=== PATIENT | female | born 1955 | race African-American/Black ===

== ENCOUNTER 2017-09-02 15:23 | Observation (INO) | payer MEDICARE ==
[~2017-09-02] VITALS: Ht 152.4 cm; Wt 72.0 kg
[~2017-09-02 15:23] MED LIST: ULTRAM50 M1 OR
--- NOTE | 2017-09-02 15:25 | NUR ---
TO ROOM 8 VIA W/C. ALERT. COOPERATIVE. C/O CHEST PAIN SINCE LAST NIGHT. HAD NAUSEA, LIGHTHEADEDNESS,AND SWEATING LAST NIGHT BUT NOT THIS AM. REPORTS TOOK ASA 81MG X 3 AND NTG X 2 PRIOR TO ARRIVAL
[2017-09-02 16:24] LABS: HEMATOCRIT 41.8 % (37.0-47.0); HEMOGLOBIN 14.3 g/dl (12.0-16.0); MEAN CELL VOLUME 92.3 fL CALC (80.0-100.0); MEAN CORPUSCULAR HGB 31.6 pG CALC (26.0-32.0); MEAN CORPUSCULAR HGB CONC 34.2 g/L CALC (32.0-36.0); NEUT# 0.99 thou/uL (2.00-7.15); RED BLOOD COUNT 4.53 mill/uL (4.20-5.60)
--- NOTE | 2017-09-02 16:30 | NUR ---
MD AWARE OF ELEVATED BP. AWAITING NEW ORDERS.
[2017-09-02 16:39] LABS: PROTHROMBIN TIME 11.7 SECONDS (9.0-12.5)
[2017-09-02 16:42] LABS: ALBUMIN 4.6 g/dL (3.2-5.0); ALKALINE PHOSPHATASE 130 u/l (38-126); ANION GAP 16 (6-22 (CALC)); BILIRUBIN, TOTAL 0.8 mg/dL (0.0-1.4); BUN 11 mg/dL (7-17); BUN/CREATININE RATIO 10 (12-20 (CALC)); CALCIUM 10.2 mg/dL (8.4-10.2); CARBON DIOXIDE 24 mmol/l (22-30); CHLORIDE 105 mmol/l (95-108); GFR 57 ML/MIN (>=60 (CALC)); GFR FOR AFR.AMER. > 60 ML/MIN (>=60 (CALC)); GLUCOSE 93 mg/dL (65-105); POTASSIUM 3.5 mmol/l (3.5-5.1); SGOT/AST 28 u/l (14-36); SGPT/ALT 24 u/l (9-52); SODIUM 141 mmol/l (137-146); TOTAL PROTEIN 8.9 g/dL (6.3-8.2)
[2017-09-02 16:52] LABS: MYOGLOBIN 43 ng/mL (0 - 62)
--- NOTE | 2017-09-02 17:02 | NUR ---
PT MEDICATED WITH 2 MG OF MORHINE SLOW IVP AND NITRO PATCH PLACED ON LEFT ANTERIOR CHEST. PT RESTING COMFORTABLY IN STRECHER. CALL FARRAR WITHIN REACH.
[2017-09-02] MEDS ORDERED: VERAPAMIL120 M1 PO (17:07)
[2017-09-02] MEDS ORDERED: CLOPIDOGREL75 MG PO (17:08)
[2017-09-02] MEDS ORDERED: PERCOCET 5/325M1 TAB PO (17:12)
[2017-09-02] MEDS ORDERED: GABAPENTIN100 MG PO (17:13)
[2017-09-02] MEDS ORDERED: VITAMIN D22000 UNIT PO (17:14)
[2017-09-02] MEDS ORDERED: FAMOTIDINE20 M1 PO (17:15)
[2017-09-02] MEDS ORDERED: PROAIR HFA IN (17:16)
[2017-09-02] MEDS ORDERED: CLONIDINE0.1 MG PO (17:16)
[2017-09-02] MEDS ORDERED: LOSARTAN POT50 MG PO (17:17)
[2017-09-02] MEDS ORDERED: PRAVASTATIN20 MG PO (17:17)
[2017-09-02] MEDS ORDERED: CARVEDILOL6.25 MG PO (17:19)
--- NOTE | 2017-09-02 17:19 | NUR ---
MD AT BEDSIDE TO DISCUSS RESUTLS AND PLAN FOR ADMIT.
--- NOTE | 2017-09-02 17:20 | NUR ---
SBAR PRINTED TO FLOOR
--- NOTE | 2017-09-02 18:00 | NUR ---
PT REPORTS PAIN IS NOW 2/10 AND DENIES ANY SOB AT THIS TIME. PT AWARE OF PENDING ADMIT AND WAIT TIME. ASSISTED PT TO BATHROOM. PT AMBULATED WITH A STEADY GAIT AND DENIES ANY DIZZINESS AT THIS TIME.
--- NOTE | 2017-09-02 18:20 | NUR ---
UNABLE TO CALL REPORT UNTIL NURSE PRACTITIONER ARRIVES.
--- NOTE | 2017-09-02 18:41 | NUR ---
PT IS CURRENTLY PAIN FREE AT THIS TIME. BP 119/74, HR 73. PT RESTING COMFORTABLY IN STRETCHER AND IS AWARE OF DELAY IN ADMISSION. WILL CONTINUE TO MONITOR.
--- NOTE | 2017-09-02 18:48 | NUR ---
REPORT GIVEN TO CAROLINE DANG FOR TRANSPORT.
--- NOTE | 2017-09-02 18:54 | NUR ---
REPORT CALLED TO CAROLINE DÍAZ. PT TO BE TRANSPORTED TO [place] IN 15 MINS.
--- NOTE | 2017-09-02 19:20 | NUR ---
PT'S B/P LOW 87/61- REMOVED NTG PASTE. WILL MONITOR PRIOR TO TAKING UPSTAIRS.
--- NOTE | 2017-09-02 19:48 | NUR ---
PT'S B/P 122/83. WILL TRANSPORT UPSTAIRS.
--- NOTE | 2017-09-02 19:48 | NUR ---
Admission Note Report Given to: BRE BY CAROLINE LOUIS. Transported by: Wheelchair X Stretcher Transported with: X Nurse Transporter X Patent IV O2 X Publicity Consultant
[2017-09-02 19:50] VITALS: BP 102/71
--- NOTE | 2017-09-02 19:53 | NUR ---
PATIENT ARRIVED TO THE FLOOR IN STABLE CONDITION VIA STRETCHER AND ACCOMPANIED BY ED NURSE. PATIENT WEIGHED AND SETTLED TO BED. ORIENTED PATIENT TO ROOM CALL SYSTEM. BED IN LOW POSITION, CALL LIGHT IN REACH.
[2017-09-02 23:17] VITALS: BP 113/71
--- NOTE | 2017-09-03 | NUR ---
PATIENT RESTING QUIETLY IN BED AT THIS TIME. C/O OF GENERALIZED PAIN. MD NOTIFIED.
[2017-09-03 03:40] VITALS: BP 115/70
--- NOTE | 2017-09-03 04:00 | NUR ---
NO APPARENT ACUTE CHANGES NOTED IN PT'S CONDITION AT THIS TIME.
[2017-09-03 05:18] LABS: HEMATOCRIT 37.5 % (37.0-47.0); HEMOGLOBIN 12.8 g/dl (12.0-16.0); IMMATURE GRANULOCYTES 0.3 % (0.0-1.0); MEAN CORPUSCULAR HGB 32.1 pG CALC (26.0-32.0); MEAN CORPUSCULAR HGB CONC 34.1 g/L CALC (32.0-36.0); NEUT# 1.51 thou/uL (2.00-7.15); RED BLOOD COUNT 3.99 mill/uL (4.20-5.60)
[2017-09-03 05:31] LABS: CALCIUM 9.8 mg/dL (8.4-10.2); CREATININE 1.2 mg/dL (0.5-1.0); POTASSIUM 3.9 mmol/l (3.5-5.1)
--- NOTE | 2017-09-03 07:00 | NUR ---
RECEIVED BEDSIDE REPORT FROM BRE VELAZQUEZ. SITTING IN BEDSIDE CHAIR TALKING ON TELEPHONE. RESPS EVEN AND UNLABORED ON ROOM AIR, TELE MONITOR IN PLACE. DENIES PAIN OR DISCOMFORT. PLAN OF CARE DISCUSSED. SAFETY PRECAUTIONS REINFORCED. BED IN LOWEST POSITION WITH WHEELS LOCKED. CALL LIGHT WITHIN REACH. ENCOURAGED PT TO CALL FOR ANY NEEDS.
[2017-09-03 07:11] VITALS: BP 138/85
[2017-09-03 09:03] LABS: CHOLESTEROL HDL RATIO 3.6 (<4.4 (CALC)); MAGNESIUM 1.8 mg/dL (1.6-2.3)
[2017-09-03 10:45] VITALS: BP 114/72
--- NOTE | 2017-09-03 11:30 | NUR ---
DR MI IN TO SEE PT, NEW ORDERS RECEIVED.
[2017-09-03 12:38] LABS: URINE BILIRUBIN - DIPSTICK NEGATIVE (NEGATIVE); URINE BLOOD DIPSTICK NEGATIVE (NEGATIVE); URINE COLOR YELLOW; URINE GLUCOSE - DIPSTICK NEGATIVE (NEGATIVE); URINE KETONE NEGATIVE (NEGATIVE); URINE NITRITE - DIPSTICK NEGATIVE (Negative); URINE PH 5.5 (4.5-8.0); URINE PROTEIN - DIPSTICK 100 mg/dL (NEG-TRACE); URINE SPECIFIC GRAVITY 1.015
--- NOTE | 2017-09-03 12:38 | NUR ---
Discharge instructions given. Patient verbalizes understanding of same. Discharged in stable condition via Ambulatory to Home with family. All belongings sent with pt.
[2017-09-03 12:47] LABS: URINE LEUK ESTERASE TRACE (NEGATIVE)
[2017-09-03 12:48] LABS: URINE CLARITY SL CLOUDY; URINE EPITHELIAL CELLS MODERATE EPI/hpf (0-FEW); URINE WBC 0-2 WBC/hpf (0-5)
== END 2017-09-03 12:37 | disposition home or self-care (01) ==
LOC: ED 15:23 → ED-I 17:02 → ED 17:19 → MS2 17:20
PROVIDERS: Emergency Medicine; Nurse Practitioner Family; ADMIT Internal Medicine; ATTEND Internal Medicine
DX: R07.9 Chest pain, unspecified (principal); I10 Essential (primary) hypertension; K21.9 Gastro-esophageal reflux disease without esophagitis; J44.9 Chronic obstructive pulmonary disease, unspecified; G89.4 Chronic pain syndrome; G47.33 Obstructive sleep apnea (adult) (pediatric); I25.10 Atherosclerotic heart disease of native coronary artery without angina pectoris; I16.0 Hypertensive urgency; E78.5 Hyperlipidemia, unspecified; R22.1 Localized swelling, mass and lump, neck; Z87.891 Personal history of nicotine dependence; Z79.02 Long term (current) use of antithrombotics/antiplatelets; Z95.5 Presence of coronary angioplasty implant and graft; R06.02 Shortness of breath

== ENCOUNTER 2018-04-12 15:28 | Emergency (ER) | payer MEDICARE, MEDICAID ==
[~2018-04-12] VITALS: Ht 152.4 cm; Wt 66.8 kg
[~2018-04-12 15:28] MED LIST changes: +CARVEDILOL6.25 MG PO; +CLONIDINE0.1 MG PO; +CLOPIDOGREL75 MG PO; +FAMOTIDINE20 M1 PO; +GABAPENTIN100 MG PO; +LOSARTAN POT50 MG PO; +PERCOCET 5/325M1 TAB PO; +PRAVASTATIN20 MG PO; +PROAIR HFA IN; +VERAPAMIL120 M1 PO; +VITAMIN D22000 UNIT PO
[2018-04-12 15:42] LABS: HEMATOCRIT 37.8 % (37.0-47.0); HEMOGLOBIN 12.6 g/dl (12.0-16.0); IMMATURE GRANULOCYTES 0.2 % (0.0-5.0); MEAN CELL VOLUME 95.2 fL CALC (80.0-100.0); MEAN CORPUSCULAR HGB 31.7 pG CALC (26.0-32.0); MEAN CORPUSCULAR HGB CONC 33.3 g/L CALC (32.0-36.0); NEUT# 1.98 thou/uL (2.00-7.15); RED BLOOD COUNT 3.97 mill/uL (4.20-5.60)
[2018-04-12 16:08] VITALS: BP 135/77
[2018-04-12 16:25] LABS: PROTHROMBIN TIME 10.8 SECONDS (9.0-12.5)
[2018-04-12 16:28] LABS: ALBUMIN 4.2 g/dL (3.2-5.0); ALKALINE PHOSPHATASE 106 u/l (38-126); BILIRUBIN, TOTAL 0.4 mg/dL (0.0-1.4); BUN 28 mg/dL (8-23); BUN/CREATININE RATIO 21 (12-20 (CALC)); CARBON DIOXIDE 18 mmol/l (22-30); CHLORIDE 108 mmol/l (95-108); CREATININE 1.3 mg/dL (0.5-1.0); GFR 42 ML/MIN (>=60 (CALC)); GFR FOR AFR.AMER. 50 ML/MIN (>=60 (CALC)); SGOT/AST 26 u/l (9-36); SGPT/ALT 31 u/l (11-66); SODIUM 141 mmol/l (137-146); TOTAL PROTEIN 8.2 g/dL (6.3-8.2)
[2018-04-12 16:36] LABS: MYOGLOBIN 51 ng/mL (0 - 62)
[2018-04-12 16:50] LABS: DIGOXIN < 0.4 ng/mL (0.8-2.0)
[2018-04-12 16:59] LABS: ANION GAP 20 (6-22 (CALC))
== END 2018-04-12 16:05 | disposition short-term general hospital (02) ==
LOC: ED 15:28
PROVIDERS: Emergency Medicine
DX: I24.9 Acute ischemic heart disease, unspecified (principal); I44.7 Left bundle-branch block, unspecified; J44.9 Chronic obstructive pulmonary disease, unspecified; I10 Essential (primary) hypertension; I25.2 Old myocardial infarction; K21.9 Gastro-esophageal reflux disease without esophagitis; Z95.5 Presence of coronary angioplasty implant and graft

== ENCOUNTER 2018-09-05 10:56 | Emergency (ER) | payer MEDICARE ==
[~2018-09-05] VITALS: Ht 152.4 cm; Wt 79.8 kg
[2018-09-05 11:32] LABS: HEMATOCRIT 36.5 % (37.0-47.0); HEMOGLOBIN 11.8 g/dl (12.0-16.0); IMMATURE GRANULOCYTES 0.3 % (0.0-5.0); MEAN CELL VOLUME 97.9 fL CALC (80.0-100.0); MEAN CORPUSCULAR HGB 31.6 pG CALC (26.0-32.0); MEAN CORPUSCULAR HGB CONC 32.3 g/L CALC (32.0-36.0); NEUT# 1.19 thou/uL (2.00-7.15); RED BLOOD COUNT 3.73 mill/uL (4.20-5.60); RED CELL DISTRI WIDTH 13.9 % (11.5-15.5)
[2018-09-05 11:51] LABS: BUN 22 mg/dL (8-23); BUN/CREATININE RATIO 19 (12-20 (CALC)); CHLORIDE 107 mmol/l (95-108); CREATININE 1.1 mg/dL (0.5-1.0); GFR 50 ML/MIN (>=60 (CALC)); GFR FOR AFR.AMER. > 60 ML/MIN (>=60 (CALC)); POTASSIUM 5.1 mmol/l (3.5-5.1); SODIUM 139 mmol/l (137-146)
[2018-09-05 11:52] LABS: ANION GAP 11 (6-22 (CALC)); CARBON DIOXIDE 26 mmol/l (22-30)
[2018-09-05 13:36] VITALS: BP 128/76
== END 2018-09-05 13:45 | disposition short-term general hospital (02) ==
LOC: ED 10:56
PROVIDERS: Family Medicine
DX: I25.110 Atherosclerotic heart disease of native coronary artery with unstable angina pectoris (principal); I10 Essential (primary) hypertension; I25.2 Old myocardial infarction; R07.89 Other chest pain; Z95.5 Presence of coronary angioplasty implant and graft; R94.31 Abnormal electrocardiogram [ECG] [EKG]

== ENCOUNTER 2020-04-01 09:15 | Emergency (ER) | payer MEDICARE ==
[~2020-04-01] VITALS: Ht 152.4 cm; Wt 80.5 kg
[2020-04-01 09:46] LABS: HEMATOCRIT 38.1 % (37.0-47.0); HEMOGLOBIN 12.5 g/dl (12.0-16.0); IMMATURE GRANULOCYTES 0.2 % (0.0-5.0); MEAN CELL VOLUME 94.3 fL CALC (80.0-100.0); MEAN CORPUSCULAR HGB 30.9 pG CALC (26.0-32.0); MEAN CORPUSCULAR HGB CONC 32.8 g/dL CAL (32.0-36.0); NEUT# 3.46 thou/uL (2.00-7.15); RED BLOOD COUNT 4.04 mill/uL (4.20-5.60); RED CELL DISTRI WIDTH 13.9 % (11.5-15.5)
[2020-04-01 09:58] LABS: ALBUMIN 4.1 g/dL (3.2-5.0); ALKALINE PHOSPHATASE 128 u/l (38-126); BUN 12 mg/dL (8-23); BUN/CREATININE RATIO 15 (12-20 (CALC)); CHLORIDE 107 mmol/l (95-108); CREATININE 0.8 mg/dL (0.5-1.0); GFR > 60 ML/MIN (>=60 (CALC)); GFR FOR AFR.AMER. > 60 ML/MIN (>=60 (CALC)); LIPASE 58 u/l (23-300); SGOT/AST 25 u/l (9-36); SODIUM 136 mmol/l (137-146); TOTAL PROTEIN 8.2 g/dL (6.3-8.2)
[2020-04-01 10:00] LABS: ANION GAP 13 (6-22 (CALC)); BILIRUBIN, TOTAL 0.8 mg/dL (0.0-1.4); CARBON DIOXIDE 20 mmol/l (22-30); POTASSIUM 3.9 mmol/l (3.5-5.1)
[2020-04-01 10:44] LABS: URINE BILIRUBIN - DIPSTICK NEGATIVE (NEGATIVE); URINE BLOOD DIPSTICK NEGATIVE (NEGATIVE); URINE COLOR YELLOW; URINE GLUCOSE - DIPSTICK NEGATIVE (NEGATIVE); URINE KETONE NEGATIVE (NEGATIVE); URINE LEUK ESTERASE NEGATIVE (NEGATIVE); URINE PROTEIN - DIPSTICK 100 mg/dL (NEG-TRACE); URINE UROBILINOGEN - DIPSTICK 0.2 E.U./dL (0.2)
[2020-04-01 10:46] LABS: URINE NITRITE - DIPSTICK POSITIVE (Negative)
[2020-04-01 10:47] LABS: URINE BACTERIA MANY hpf; URINE EPITHELIAL CELLS FEW EPI/hpf (0-FEW)
[2020-04-01] MEDS ORDERED: CEPHALEXIN500 M1 PO (10:51)
[2020-04-01 11:02] VITALS: BP 191/98
[2020-04-01] MEDS ORDERED: ONDANSETRON4 MG PO ×2 (11:07)
--- NOTE | 2020-04-03 10:21 | NUR ---
URINE CX SHOWS ESBL E COLI. SPOKE WITH ER DR LE, PT PRESENTED WITH NAUSEA/VOMITING, NO FLANK PAIN, NO UTI COMPLAINTS. LIKELY CYSTITIS VS PYELONEPHRITIS. CULTURE SHOWS SENSITIVITY TO NITROFURANTOIN. SPOKE WITH PT, REPORTED FEELING MUCH BETTER, NO NAUSEA NO VOMITING NO FEVER, JUST LACK OF APPETITE. INFORMED PT OF NEW RX, CALLED IN MACROBID 100MG PO BID X5 DAYS TO [facility].
== END 2020-04-01 11:15 | disposition home or self-care (01) ==
LOC: ED 09:15
PROVIDERS: Family Medicine
DX: R11.2 Nausea with vomiting, unspecified (principal); N39.0 Urinary tract infection, site not specified; I10 Essential (primary) hypertension; K21.9 Gastro-esophageal reflux disease without esophagitis; J44.9 Chronic obstructive pulmonary disease, unspecified; I25.2 Old myocardial infarction; B96.20 Unspecified Escherichia coli [E. coli] as the cause of diseases classified elsewhere; Z16.12 Extended spectrum beta lactamase (ESBL) resistance

== ENCOUNTER 2020-05-20 07:34 | Emergency (ER) | payer MEDICARE ==
[~2020-05-20] VITALS: Ht 165.1 cm; Wt 90.0 kg
[~2020-05-20 07:34] MED LIST changes: +CEPHALEXIN500 M1 PO; +ONDANSETRON4 MG PO
[2020-05-20] MEDS ORDERED: ASPIRIN81 MG PO (07:57)
[2020-05-20] MEDS ORDERED: [UNRECOGNIZED DRUG - OTHER] PO (07:59)
[2020-05-20] MEDS ORDERED: ERGOCAL2500 UNIT PO (07:59)
[2020-05-20] MEDS ORDERED: EZETIMIBE10 MG PO (08:00)
[2020-05-20] MEDS ORDERED: LABETALOL200 MG PO (08:00)
[2020-05-20] MEDS ORDERED: NIFEDIPINE60 MG PO (08:00)
[2020-05-20] MEDS ORDERED: NEURONTIN300 MG PO (08:01)
[2020-05-20] MEDS ORDERED: TAMSULOSIN0.4 MG PO (08:02)
[2020-05-20] MEDS ORDERED: FAMOTIDINE20 M1 PO (08:03)
[2020-05-20] MEDS ORDERED: XANAX0.25 MG PO (08:05)
[2020-05-20] MEDS ORDERED: LIPITOR80 M1 PO (08:05)
[2020-05-20] MEDS ORDERED: FOSAMAX PLUS PO (08:06)
[2020-05-20 08:27] LABS: HEMATOCRIT 38.3 % (37.0-47.0); HEMOGLOBIN 12.1 g/dl (12.0-16.0); MEAN CORPUSCULAR HGB 30.3 pG CALC (26.0-32.0); MEAN CORPUSCULAR HGB CONC 31.6 g/dL CAL (32.0-36.0); NEUT# 1.77 thou/uL (2.00-7.15); RED BLOOD COUNT 3.99 mill/uL (4.20-5.60); RED CELL DISTRI WIDTH 13.6 % (11.5-15.5)
[2020-05-20 08:40] LABS: ALBUMIN 4.1 g/dL (3.2-5.0); ALKALINE PHOSPHATASE 116 u/l (38-126); ANION GAP 12 (6-22 (CALC)); BILIRUBIN, TOTAL 0.9 mg/dL (0.0-1.4); BUN 19 mg/dL (8-23); BUN/CREATININE RATIO 24 (12-20 (CALC)); CARBON DIOXIDE 21 mmol/l (22-30); CHLORIDE 109 mmol/l (95-108); CREATININE 0.8 mg/dL (0.5-1.0); GFR > 60 ML/MIN (>=60 (CALC)); GFR FOR AFR.AMER. > 60 ML/MIN (>=60 (CALC)); SGOT/AST 23 u/l (9-36); SODIUM 138 mmol/l (137-146)
[2020-05-20 10:24] LABS: URINE BILIRUBIN - DIPSTICK NEGATIVE (NEGATIVE); URINE BLOOD DIPSTICK NEGATIVE (NEGATIVE); URINE COLOR YELLOW; URINE GLUCOSE - DIPSTICK NEGATIVE (NEGATIVE); URINE KETONE NEGATIVE (NEGATIVE); URINE LEUK ESTERASE NEGATIVE (NEGATIVE); URINE NITRITE - DIPSTICK NEGATIVE (Negative); URINE PROTEIN - DIPSTICK 100 mg/dL (NEG-TRACE); URINE SPECIFIC GRAVITY 1.025
[2020-05-20 10:27] LABS: URINE EPITHELIAL CELLS MODERATE EPI/hpf (0-FEW)
[2020-05-20] MEDS ORDERED: MIRALAX3350 N1 PO (10:28)
[2020-05-20 11:20] VITALS: BP 166/89
== END 2020-05-20 11:30 | disposition home or self-care (01) ==
LOC: ED 07:34
PROVIDERS: Emergency Medicine
DX: I10 Essential (primary) hypertension (principal); K59.00 Constipation, unspecified; J44.9 Chronic obstructive pulmonary disease, unspecified; I25.2 Old myocardial infarction; Z95.5 Presence of coronary angioplasty implant and graft

== ENCOUNTER 2020-05-24 23:15 | Emergency (ER) | payer MEDICARE ==
[~2020-05-24] VITALS: Ht 165.1 cm; Wt 84.1 kg
[~2020-05-24 23:15] MED LIST changes: +ASPIRIN81 MG PO; +ERGOCAL2500 UNIT PO; +EZETIMIBE10 MG PO; +FOSAMAX PLUS PO; +LABETALOL200 MG PO; +LIPITOR80 M1 PO; +MIRALAX3350 N1 PO; +NEURONTIN300 MG PO; +NIFEDIPINE60 MG PO; +TAMSULOSIN0.4 MG PO; +XANAX0.25 MG PO; +[UNRECOGNIZED DRUG - OTHER] PO
[2020-05-24 23:59] LABS: HEMATOCRIT 37.7 % (37.0-47.0); HEMOGLOBIN 12.2 g/dl (12.0-16.0); IMMATURE GRANULOCYTES 0.3 % (0.0-5.0); MEAN CORPUSCULAR HGB 30.4 pG CALC (26.0-32.0); MEAN CORPUSCULAR HGB CONC 32.4 g/dL CAL (32.0-36.0); NEUT# 4.26 thou/uL (2.00-7.15); RED BLOOD COUNT 4.01 mill/uL (4.20-5.60); RED CELL DISTRI WIDTH 13.3 % (11.5-15.5)
[2020-05-25 01:11] LABS: ALBUMIN 4.6 g/dL (3.2-5.0); ALKALINE PHOSPHATASE 109 u/l (38-126); BUN 13 mg/dL (8-23); BUN/CREATININE RATIO 16 (12-20 (CALC)); CARBON DIOXIDE 21 mmol/l (22-30); CHLORIDE 105 mmol/l (95-108); CREATININE 0.8 mg/dL (0.5-1.0); GFR > 60 ML/MIN (>=60 (CALC)); GFR FOR AFR.AMER. > 60 ML/MIN (>=60 (CALC)); SODIUM 134 mmol/l (137-146)
[2020-05-25 01:14] LABS: ANION GAP 13 (6-22 (CALC)); BILIRUBIN, TOTAL 1.8 mg/dL (0.0-1.4); POTASSIUM 5.1 mmol/l (3.5-5.1); SGOT/AST 50 u/l (9-36)
[2020-05-25 01:23] LABS: MYOGLOBIN 46 ng/mL (0 - 62)
[2020-05-25 02:00] VITALS: BP 161/69
[2020-05-25 02:29] LABS: URINE BILIRUBIN - DIPSTICK NEGATIVE (NEGATIVE); URINE BLOOD DIPSTICK NEGATIVE (NEGATIVE); URINE COLOR YELLOW; URINE GLUCOSE - DIPSTICK NEGATIVE (NEGATIVE); URINE KETONE NEGATIVE (NEGATIVE); URINE LEUK ESTERASE NEGATIVE (NEGATIVE); URINE NITRITE - DIPSTICK NEGATIVE (Negative); URINE PROTEIN - DIPSTICK 100 mg/dL (NEG-TRACE); URINE UROBILINOGEN - DIPSTICK 0.2 E.U./dL (0.2)
[2020-05-25 03:02] LABS: URINE BACTERIA FEW hpf; URINE EPITHELIAL CELLS FEW EPI/hpf (0-FEW); URINE WBC 0-2 WBC/hpf (0-5)
== END 2020-05-25 02:15 | disposition home or self-care (01) ==
LOC: ED 23:15
PROVIDERS: Emergency Medicine
DX: R09.89 Other specified symptoms and signs involving the circulatory and respiratory systems (principal); K29.70 Gastritis, unspecified, without bleeding; I10 Essential (primary) hypertension; K21.9 Gastro-esophageal reflux disease without esophagitis; J44.9 Chronic obstructive pulmonary disease, unspecified; I25.2 Old myocardial infarction
CPT/HCPCS: Q9967; S0164

== ENCOUNTER 2020-07-09 12:05 | Emergency (ER) | payer MEDICARE ==
[~2020-07-09] VITALS: Ht 165.1 cm; Wt 86.0 kg
[2020-07-09 12:46] LABS: HEMATOCRIT 39.4 % (37.0-47.0); HEMOGLOBIN 12.7 g/dl (12.0-16.0); MEAN CELL VOLUME 95.6 fL CALC (80.0-100.0); MEAN CORPUSCULAR HGB 30.8 pG CALC (26.0-32.0); MEAN CORPUSCULAR HGB CONC 32.2 g/dL CAL (32.0-36.0); NEUT# 1.6 thou/uL (2.00-7.15); RED BLOOD COUNT 4.12 mill/uL (4.20-5.60); RED CELL DISTRI WIDTH 13.3 % (11.5-15.5)
[2020-07-09 13:04] LABS: ALBUMIN 4.1 g/dL (3.2-5.0); ALKALINE PHOSPHATASE 109 u/l (38-126); BUN 17 mg/dL (8-23); BUN/CREATININE RATIO 17 (12-20 (CALC)); CARBON DIOXIDE 23 mmol/l (22-30); CHLORIDE 109 mmol/l (95-108); GFR 56 ML/MIN (>=60 (CALC)); GFR FOR AFR.AMER. > 60 ML/MIN (>=60 (CALC)); POTASSIUM 4.2 mmol/l (3.5-5.1); SGOT/AST 24 u/l (9-36); TOTAL PROTEIN 8.5 g/dL (6.3-8.2)
[2020-07-09 13:06] LABS: ANION GAP 13 (6-22 (CALC)); SODIUM 141 mmol/l (137-146)
[2020-07-09 13:15] LABS: URINE BILIRUBIN - DIPSTICK NEGATIVE (NEGATIVE); URINE BLOOD DIPSTICK NEGATIVE (NEGATIVE); URINE COLOR YELLOW; URINE GLUCOSE - DIPSTICK NEGATIVE (NEGATIVE); URINE KETONE NEGATIVE (NEGATIVE); URINE LEUK ESTERASE TRACE (NEGATIVE); URINE NITRITE - DIPSTICK NEGATIVE (Negative); URINE PH 5.5 (4.5-8.0); URINE PROTEIN - DIPSTICK 100 mg/dL (NEG-TRACE); URINE SPECIFIC GRAVITY >=1.030; URINE UROBILINOGEN - DIPSTICK 0.2 E.U./dL (0.2)
[2020-07-09 13:18] LABS: URINE RBC 0-2 RBC/hpf (0-5); URINE SQUAMOUS EPITHELIAL CELL FEW EPI/hpf (0-FEW)
[2020-07-09] MEDS ORDERED: KEFLEX500 M1 PO (14:26)
[2020-07-09 15:20] VITALS: BP 186/96
== END 2020-07-09 15:20 | disposition home or self-care (01) ==
LOC: ED 12:05
DX: N39.0 Urinary tract infection, site not specified (principal); K04.7 Periapical abscess without sinus; I10 Essential (primary) hypertension; K08.409 Partial loss of teeth, unspecified cause, unspecified class; K21.9 Gastro-esophageal reflux disease without esophagitis; J44.9 Chronic obstructive pulmonary disease, unspecified; I25.2 Old myocardial infarction; Z87.440 Personal history of urinary (tract) infections

== ENCOUNTER 2020-12-30 05:54 | Emergency (ER) | payer MEDICARE ==
[~2020-12-30 05:54] MED LIST changes: +CARVEDILOL12.5 MG PO; +DEXAMETHASON0.5 MG PO; +ELIQUIS2.5 MG PO; +HYDRALAZINE10 M2 PO; +KEFLEX500 M1 PO; +NIFEDIPINE90 M1 PO; +NITROSTAT0.4 MG SL; +PERCOCET1 TA4 PO; +PROAIR HFA108 MCG/AC PO; +PROTONIX40 M2 PO
[2020-12-30 07:00] LABS: HEMATOCRIT 38.8 % (37.0-47.0); HEMOGLOBIN 12.5 g/dl (12.0-16.0); IMMATURE GRANULOCYTES 0.2 % (0.0-5.0); MEAN CELL VOLUME 95.8 fL CALC (80.0-100.0); MEAN CORPUSCULAR HGB 30.9 pG CALC (26.0-32.0); MEAN CORPUSCULAR HGB CONC 32.2 g/dL CAL (32.0-36.0); NEUT# 1.48 thou/uL (2.00-7.15); RED BLOOD COUNT 4.05 mill/uL (4.20-5.60); RED CELL DISTRI WIDTH 13.2 % (11.5-15.5)
[2020-12-30 07:16] LABS: ALBUMIN 4.2 g/dL (3.2-5.0); ALKALINE PHOSPHATASE 88 u/l (38-126); AMYLASE 88 u/l (30-110); ANION GAP 11 (6-22 (CALC)); BILIRUBIN, TOTAL 0.8 mg/dL (0.0-1.4); BUN 14 mg/dL (8-23); BUN/CREATININE RATIO 16 (12-20 (CALC)); CARBON DIOXIDE 24 mmol/l (22-30); CHLORIDE 106 mmol/l (95-108); CREATININE 0.9 mg/dL (0.5-1.0); GFR > 60 ML/MIN (>=60 (CALC)); GFR FOR AFR.AMER. > 60 ML/MIN (>=60 (CALC)); LIPASE 45 u/l (23-300); POTASSIUM 3.7 mmol/l (3.5-5.1); SGOT/AST 23 u/l (9-36); SODIUM 137 mmol/l (137-146); TOTAL PROTEIN 8.2 g/dL (6.3-8.2)
[2020-12-30] MEDS ORDERED: GABAPENTIN100 MG PO (07:25)
[2020-12-30] MEDS ORDERED: ONDANSETRON4 MG PO (07:25)
[2020-12-30] MEDS ORDERED: BENADRYL 25MG C25 MG PO (07:27)
[2020-12-30] MEDS ORDERED: TYLENOL EXTRA STRENG PO (07:27)
[2020-12-30] MEDS ORDERED: CLOTRIMAZOLE13 EX (07:28)
[2020-12-30] MEDS ORDERED: EX-LAX PO (07:28)
[2020-12-30 08:54] LABS: URINE BILIRUBIN - DIPSTICK NEGATIVE (NEGATIVE); URINE BLOOD DIPSTICK NEGATIVE (NEGATIVE); URINE COLOR YELLOW; URINE GLUCOSE - DIPSTICK NEGATIVE (NEGATIVE); URINE KETONE NEGATIVE (NEGATIVE); URINE LEUK ESTERASE TRACE (NEGATIVE); URINE PH 6.5 (4.5-8.0); URINE PROTEIN - DIPSTICK TRACE mg/dL (NEG-TRACE); URINE UROBILINOGEN - DIPSTICK 0.2 E.U./dL (0.2)
[2020-12-30 08:55] LABS: URINE NITRITE - DIPSTICK NEGATIVE (Negative)
[2020-12-30] MEDS ORDERED: PROTONIX40 M2 PO (10:14)
[2020-12-30 10:59] VITALS: BP 183/77
== END 2020-12-30 10:59 | disposition home or self-care (01) ==
LOC: ED 05:54
PROVIDERS: Emergency Medicine
DX: R10.13 Epigastric pain (principal); I10 Essential (primary) hypertension; K21.9 Gastro-esophageal reflux disease without esophagitis; J44.9 Chronic obstructive pulmonary disease, unspecified; I25.2 Old myocardial infarction; Z95.5 Presence of coronary angioplasty implant and graft
CPT/HCPCS: Q9967; S0164

== ENCOUNTER 2021-01-01 06:57 | Emergency (ER) | payer MEDICARE ==
[~2021-01-01 06:57] MED LIST changes: +BENADRYL 25MG C25 MG PO; +CLOTRIMAZOLE13 EX; +EX-LAX PO; +TYLENOL EXTRA STRENG PO
[2021-01-01 07:24] LABS: HEMATOCRIT 39.3 % (37.0-47.0); HEMOGLOBIN 12.7 g/dl (12.0-16.0); IMMATURE GRANULOCYTES 0.2 % (0.0-5.0); MEAN CELL VOLUME 96.1 fL CALC (80.0-100.0); MEAN CORPUSCULAR HGB 31.1 pG CALC (26.0-32.0); MEAN CORPUSCULAR HGB CONC 32.3 g/dL CAL (32.0-36.0); NEUT# 1.4 thou/uL (2.00-7.15); RED BLOOD COUNT 4.09 mill/uL (4.20-5.60); RED CELL DISTRI WIDTH 13.1 % (11.5-15.5)
[2021-01-01 07:58] LABS: ALKALINE PHOSPHATASE 72 u/l (38-126); BUN 9 mg/dL (8-23); BUN/CREATININE RATIO 12 (12-20 (CALC)); CARBON DIOXIDE 22 mmol/l (22-30); CREATININE 0.8 mg/dL (0.5-1.0); GFR > 60 ML/MIN (>=60 (CALC)); GFR FOR AFR.AMER. > 60 ML/MIN (>=60 (CALC)); LIPASE 50 u/l (23-300); SGOT/AST 32 u/l (9-36); TOTAL PROTEIN 7.6 g/dL (6.3-8.2)
[2021-01-01 08:00] LABS: GFR 56 ML/MIN (>=60 (CALC)); GFR FOR AFR.AMER. > 60 ML/MIN (>=60 (CALC))
[2021-01-01 08:16] LABS: SODIUM 138 mmol/l (137-146)
[2021-01-01 08:17] LABS: ANION GAP 15 (6-22 (CALC)); BILIRUBIN, TOTAL 0.9 mg/dL (0.0-1.4); CHLORIDE 105 mmol/l (95-108); POTASSIUM 3.8 mmol/l (3.5-5.1)
[2021-01-01 09:27] LABS: URINE BILIRUBIN - DIPSTICK NEGATIVE (NEGATIVE); URINE BLOOD DIPSTICK NEGATIVE (NEGATIVE); URINE COLOR YELLOW; URINE GLUCOSE - DIPSTICK NEGATIVE (NEGATIVE); URINE KETONE NEGATIVE (NEGATIVE); URINE LEUK ESTERASE TRACE (NEGATIVE); URINE PH 6.5 (4.5-8.0); URINE PROTEIN - DIPSTICK 30 mg/dL (NEG-TRACE); URINE UROBILINOGEN - DIPSTICK 0.2 E.U./dL (0.2)
[2021-01-01 09:32] LABS: URINE NITRITE - DIPSTICK NEGATIVE (Negative)
[2021-01-01 09:33] LABS: URINE EPITHELIAL CELLS MODERATE EPI/hpf (0-FEW); URINE WBC 0-2 WBC/hpf (0-5)
[2021-01-01 12:50] VITALS: BP 192/81
== END 2021-01-01 12:45 | disposition short-term general hospital (02) ==
LOC: ED 06:57
PROVIDERS: Family Medicine
DX: K83.8 Other specified diseases of biliary tract (principal); I10 Essential (primary) hypertension; K21.9 Gastro-esophageal reflux disease without esophagitis; J44.9 Chronic obstructive pulmonary disease, unspecified; I25.2 Old myocardial infarction; Z95.5 Presence of coronary angioplasty implant and graft
CPT/HCPCS: Q9967

== ENCOUNTER 2021-02-12 10:33 | Emergency (ER) | payer MEDICARE ==
[~2021-02-12] VITALS: Ht 167.6 cm; Wt 73.0 kg
[2021-02-12 11:05] LABS: URINE BILIRUBIN - DIPSTICK NEGATIVE (NEGATIVE); URINE BLOOD DIPSTICK NEGATIVE (NEGATIVE); URINE COLOR YELLOW; URINE GLUCOSE - DIPSTICK NEGATIVE (NEGATIVE); URINE KETONE NEGATIVE (NEGATIVE); URINE PROTEIN - DIPSTICK 100 mg/dL (NEG-TRACE); URINE UROBILINOGEN - DIPSTICK 0.2 E.U./dL (0.2)
[2021-02-12 11:14] LABS: URINE LEUK ESTERASE TRACE (NEGATIVE); URINE NITRITE - DIPSTICK NEGATIVE (Negative)
[2021-02-12 11:15] LABS: URINE EPITHELIAL CELLS MODERATE EPI/hpf (0-FEW); URINE WBC 0-2 WBC/hpf (0-5)
[2021-02-12 11:47] LABS: HEMATOCRIT 33.9 % (37.0-47.0); IMMATURE GRANULOCYTES 0.3 % (0.0-5.0); MEAN CELL VOLUME 95.2 fL CALC (80.0-100.0); MEAN CORPUSCULAR HGB 30.9 pG CALC (26.0-32.0); MEAN CORPUSCULAR HGB CONC 32.4 g/dL CAL (32.0-36.0); NEUT# 1.28 thou/uL (2.00-7.15); RED BLOOD COUNT 3.56 mill/uL (4.20-5.60); RED CELL DISTRI WIDTH 13.7 % (11.5-15.5)
[2021-02-12 12:02] LABS: BUN 15 mg/dL (8-23)
[2021-02-12 13:01] LABS: ALBUMIN 3.5 g/dL (3.2-5.0); ALKALINE PHOSPHATASE 81 u/l (38-126); BUN/CREATININE RATIO 17 (12-20 (CALC)); CHLORIDE 108 mmol/l (95-108); CREATININE 0.9 mg/dL (0.5-1.0); GFR > 60 ML/MIN (>=60 (CALC)); GFR FOR AFR.AMER. > 60 ML/MIN (>=60 (CALC)); SGOT/AST 27 u/l (9-36); SODIUM 137 mmol/l (137-146); TOTAL PROTEIN 7.3 g/dL (6.3-8.2)
[2021-02-12 13:14] LABS: ANION GAP 6 (6-22 (CALC)); BILIRUBIN, TOTAL 0.5 mg/dL (0.0-1.4); CARBON DIOXIDE 27 mmol/l (22-30)
[2021-02-12 14:15] VITALS: BP 196/90
== END 2021-02-12 14:33 | disposition home or self-care (01) ==
LOC: ED 10:33
DX: I10 Essential (primary) hypertension (principal); K21.9 Gastro-esophageal reflux disease without esophagitis; J44.9 Chronic obstructive pulmonary disease, unspecified; I25.2 Old myocardial infarction; Z95.5 Presence of coronary angioplasty implant and graft

== ENCOUNTER 2021-02-18 10:50 | Emergency (ER) | payer MEDICARE ==
[~2021-02-18] VITALS: Ht 170.2 cm; Wt 85.9 kg
[2021-02-18 11:23] LABS: HEMATOCRIT 37.5 % (37.0-47.0); HEMOGLOBIN 12.3 g/dl (12.0-16.0); IMMATURE GRANULOCYTES 0.2 % (0.0-5.0); MEAN CELL VOLUME 94.7 fL CALC (80.0-100.0); MEAN CORPUSCULAR HGB 31.1 pG CALC (26.0-32.0); MEAN CORPUSCULAR HGB CONC 32.8 g/dL CAL (32.0-36.0); NEUT# 1.7 thou/uL (2.00-7.15); RED BLOOD COUNT 3.96 mill/uL (4.20-5.60)
[2021-02-18] MEDS ORDERED: EZETIMIBE10 MG PO ×2 (11:25→11:26)
[2021-02-18] MEDS ORDERED: BAYER ASPIRIN E81 MG PO (11:26)
[2021-02-18 11:47] LABS: ALBUMIN 3.5 g/dL (3.2-5.0); ALKALINE PHOSPHATASE 85 u/l (38-126); ANION GAP 12 (6-22 (CALC)); BILIRUBIN, TOTAL 0.6 mg/dL (0.0-1.4); BUN 16 mg/dL (8-23); BUN/CREATININE RATIO 16 (12-20 (CALC)); CARBON DIOXIDE 25 mmol/l (22-30); CHLORIDE 106 mmol/l (95-108); GFR 56 ML/MIN (>=60 (CALC)); GFR FOR AFR.AMER. > 60 ML/MIN (>=60 (CALC)); POTASSIUM 4.2 mmol/l (3.5-5.1); SGOT/AST 22 u/l (9-36); SODIUM 139 mmol/l (137-146)
[2021-02-18 13:46] VITALS: BP 169/90
== END 2021-02-18 13:48 | disposition left against medical advice (07) ==
LOC: ED 10:50
PROVIDERS: Emergency Medicine
DX: I10 Essential (primary) hypertension (principal); E78.5 Hyperlipidemia, unspecified; I25.10 Atherosclerotic heart disease of native coronary artery without angina pectoris; J44.9 Chronic obstructive pulmonary disease, unspecified; K21.9 Gastro-esophageal reflux disease without esophagitis; I25.2 Old myocardial infarction; Z95.5 Presence of coronary angioplasty implant and graft; Z91.19 Patient's noncompliance with other medical treatment and regimen